=== PATIENT | male | born 1955 | race Caucasian/White ===

== ENCOUNTER 2022-05-25 01:16 | Day surgery (SDC) | payer MEDICARE, BC, SELFPAY ==
[2022-05-09 13:24] VITALS: BMI 25.8
[2022-05-25 06:56] VITALS: BP 139/84; PULSE 77; RESP 18; TEMP 36.3; O2SAT 98
[2022-05-25] MEDS: LACTATED RINGERS 1,000 ML 150 ML IV CONT (07:06)
--- NOTE | 2022-05-25 07:53 | PM.HPGS ---
History of Present Illness History of Present Illness Consent: Risks, benefits, and alternatives have been discussed and questions answered. Patient agrees to proceed with procedure. Chief complaint: hx of colon polyps Narrative: Juan Caro is a 67 year old male Presents for screening colonoscopy. Patient has a history of colon polyps. Most recent colonoscopy 2016. Patient's current weight appetite bowel movements are normal. He denies abdominal pain. He has had no bleeding. Current weight appetite is normal. He Review of Systems Review of Systems: review of systems noncontributory. [facility] Past Medical History Medical History (Updated 05/25/22 @ 07:54 by Shai Delvalle MD) Eczema Erectile dysfunction Essential (primary) hypertension FH: CAD (coronary artery disease) Other hyperlipidemia Pre-diabetes Radiculopathy of lumbosacral region Family History Family History Other Family history of coronary artery disease Hypertension Social History Social History (Updated 03/01/22 @ 09:56 by Mariam Chung [facility]) Smoking packs per day: 1.5 Smoking cigarettes per day: 30.0 Years smoked: 30 Smoking pack-years: 45.00 Smoking status: Former smoker Tobacco type: cigarettes Second hand tobacco smoke exposure: No Smoking end date: 08/19/09 Alcohol intake: current Drinks per week: 35 Substance use: never Substance use type: does not use Living arrangements: with family Gender identity (if verbalized by the patient): Male Sexual Orientation (if Verbalized by the Patient): Straight or Heterosexual Spiritual care concerns: No Agree to blood products: Yes Meds Home Medications and Allergies Home Medications Medication Instructions Recorded Confirmed Type diltiazem HCl 360 mg 360 mg PO DAILY #90 caps 08/23/21 05/25/22 Rx capsule,extended release 24 hr lisinopril 10 mg tablet 10 mg PO DAILY #90 tabs 08/23/21 05/25/22 Rx tadalafil 5 mg tablet 5 mg PO DAILY #28 tabs 08/23/21 05/25/22 Rx peg 3350-electrolytes 236 240 ml PO Q10M #4,000 mL 03/07/22 05/25/22 Rx gram-22.74 gram-6.74 gram-5.86 gram solution (Golytely) Allergies Allergy/AdvReac Type Severity Reaction Status Date / Time No Known Allergies Allergy Mild Verified 05/25/22 06:54 Vital Signs Vital Signs - 24 hr 05/25/22 06:56 Temperature 97.4 F L Pulse Rate 77 Respiratory Rate 18 Blood Pressure 139/84 Pulse Oximetry 98 Oxygen Delivery Room Air Exam Narrative: Physical exam reveals patient be alert. Vital signs stable. HEENT exam is unremarkable. Patient is anicteric. Lungs are clear to auscultation and percussion. Heart is without murmur or extra sounds. Abdomen bowel sounds are present soft nontender with no organomegaly. Digital external rectal exam is normal. Assessment and Plan Assessment and plan (1) History of colon polyps: Code(s): Z86.010 - Personal history of colonic polyps Status: Acute Assessment and Plan: Patient with a history of adenomatous colon polyps. He has also had intermittent hyperplastic polyp. Plan for surveillance colonoscopy now consider this a 5-7 year intervals in the future.
--- NOTE | 2022-05-25 07:53 | P.PNAN_ITS ---
Anes - Initial Pre Proc Eval Procedure: Operation Date: 05/25/22 08:00 Proposed Procedures p Screening Colonoscopy - Shai Delvalle MD Date/Time: 05/25/22 07:53 Surgeon: Shai Delvalle MD Pre Op Diagnosis: hx of colon polyps Patient Data Age: 67 Gender: M Height: 1.8 m Weight: 84 kg Last Vital Signs Temp 97.4 F L 05/25/22 06:56 Pulse 77 05/25/22 06:56 Resp 18 05/25/22 06:56 BP 139/84 05/25/22 06:56 Pulse Ox 98 05/25/22 06:56 O2 Del Method Room Air 05/25/22 06:56 Allergies Allergy/AdvReac Type Severity Reaction Status Date / Time No Known Allergies Allergy Mild Verified 05/25/22 06:54 Home Medications Medication Instructions Recorded Confirmed Type diltiazem HCl 360 mg 360 mg PO DAILY #90 caps 08/23/21 05/25/22 Rx capsule,extended release 24 hr lisinopril 10 mg tablet 10 mg PO DAILY #90 tabs 08/23/21 05/25/22 Rx tadalafil 5 mg tablet 5 mg PO DAILY #28 tabs 08/23/21 05/25/22 Rx peg 3350-electrolytes 236 240 ml PO Q10M #4,000 mL 03/07/22 05/25/22 Rx gram-22.74 gram-6.74 gram-5.86 gram solution (Golytely) Patient hx anesthesia problems: none Family hx anesthesia problems: none Results Review: All pre-operative results and documents have been reviewed as part of the pre- operative evaluation. [facility] Past Medical History Medical History Eczema Erectile dysfunction Essential (primary) hypertension FH: CAD (coronary artery disease) Other hyperlipidemia Pre-diabetes Radiculopathy of lumbosacral region Family History Family History Other Family history of coronary artery disease Hypertension Social History Social History (Updated 03/01/22 @ 09:56 by Mariam Chung CMA) Smoking packs per day: 1.5 Smoking cigarettes per day: 30.0 Years smoked: 30 Smoking pack-years: 45.00 Smoking status: Former smoker Tobacco type: cigarettes Second hand tobacco smoke exposure: No Smoking end date: 08/19/09 Alcohol intake: current Drinks per week: 35 Substance use: never Substance use type: does not use Living arrangements: with family Gender identity (if verbalized by the patient): Male Sexual Orientation (if Verbalized by the Patient): Straight or Heterosexual Spiritual care concerns: No Agree to blood products: Yes Anes - Eval Final PreProcedure Day of Procedure 05/25/22 07:53 Patient weight: normal Heart: regular rate and rhythm Lungs: clear to auscultation Airway: Mallampati scale class II Neurological: alert and oriented Last oral intake: >/= 8 hours ASA classification: II Emergent: no Anesthetic plan: proceed Anesthesia type and monitoring: general GIVS and standard monitoring Results Review: All pre-operative results and documents have been reviewed as part of the pre- operative evaluation. Informed Consent: The patient's anesthetic plan and its attendant risks and benefits were discussed with the patient/family/POA. Questions were solicited and answers provided to the satisfaction of the patient/family/POA.
[2022-05-25] MEDS: SIMETHICONE ORAL SUSPENSION 20 MG/0.3 ML 30 ML BOTTLE 0.6 ML IRRIGATION (08:15)
[2022-05-25 08:27] VITALS: BP 114/73; PULSE 63; RESP 12; O2SAT 99
[2022-05-25 08:37] VITALS: BP 113/73; PULSE 67; RESP 21; O2SAT 99
[2022-05-25 08:47] VITALS: BP 133/71; PULSE 68; RESP 22; O2SAT 100
== END 2022-05-25 08:52 | disposition home or self-care (01) ==
PROVIDERS: PCP Family Medicine; Visit Provider Internal Medicine Gastroenterology
PROC: 0DJD8ZZ Inspection of Lower Intestinal Tract, Via Natural or Artificial Opening Endoscopic (ICD-10-PCS; CPT 45378; principal; 2022-05-25 08:00)
DX: Z12.11 Encounter for screening for malignant neoplasm of colon (principal); D12.8 Benign neoplasm of rectum; D12.0 Benign neoplasm of cecum; K64.8 Other hemorrhoids; I10 Essential (primary) hypertension; I25.10 Atherosclerotic heart disease of native coronary artery without angina pectoris; R73.03 Prediabetes; E78.2 Mixed hyperlipidemia; L30.9 Dermatitis, unspecified; Z87.891 Personal history of nicotine dependence
CPT/HCPCS: 45385; 88305; J2704; J7120

== ENCOUNTER 2024-01-17 12:30 | Emergency (ER) | payer MEDICARE, BC, SELFPAY ==
--- NOTE | ~2024-01-17 | XR_ITS ---
XR finger 1st LT min 2V 01/17/2024 12:57 Indication: Laceration to the first finger Procedure: 4 views left first finger Comparison: No prior studies for comparison. Findings: There is a comminuted tuft fracture left first distal phalanx with overlying soft tissue ir regularity. No foreign body. Impression: 1: Comminuted displaced tuft fracture left first distal phalanx. Reviewed, dictated and finalized at location B. Impression: 1: Comminuted displaced tuft fracture left first distal phalanx.
[2024-01-17 12:37] VITALS: BP 136/75; PULSE 84; RESP 20; TEMP 36.3; O2SAT 98
--- NOTE | 2024-01-17 12:49 | ED.WOUNDLAC ---
HPI - Wound/Laceration General Chief Complaint: Wound/Laceration Stated Complaint: laceration left thumb Time Seen by Provider: 01/17/24 12:40 Focused HPI: This is a 68-year-old male that presents to the emergency department for laceration to his left thumb sustained just prior to arrival. Reports he tripped and dropped the toilet he was working on. He thinks it broke and he cut his finger on some of the ceramic. He is not up-to-date on tetanus. Reports injury to the nail. Denies decreased range of motion or numbness. Patient is right-hand dominant GENERAL: Well-appearing, well-nourished, and in no acute distress. HEAD: Normocephalic, atraumatic. CHEST: Clear to auscultation. ?No respiratory distress. HEART: Regular rate and rhythm.? NEURO: ?Alert and oriented x3. Patient screened in triage and initial orders placed.? ?Additional care and disposition to be based upon?diagnostic testing and treatment. Related Data Allergies Allergy/AdvReac Type Severity Reaction Status Date / Time No Known Allergies Allergy Mild Verified 01/17/24 12:42 Review of Systems Review of Systems: CONSTITUTIONAL: Denies fever SKIN: Reports laceration All systems reviewed & are unremarkable except as noted in HPI and below PMFSH Past Medical History Medical History (Updated 01/17/24 @ 16:09 by Radha Valdez PA-C) Eczema Erectile dysfunction Essential (primary) hypertension FH: CAD (coronary artery disease) Other hyperlipidemia Pre-diabetes Radiculopathy of lumbosacral region Family History Family History Other Family history of coronary artery disease Hypertension Social History Social History Smoking packs per day: 1.5 Smoking cigarettes per day: 30.0 Years smoked: 30 Smoking pack-years: 45.00 Smoking status: Former smoker Tobacco type: cigarettes Second hand tobacco smoke exposure: No Smoking end date: 08/19/09 Alcohol intake: current Drinks per week: 14 Substance use: never Substance use type: does not use Lack of Transportation: No Lack of Food: Never True Current Housing: I Have Housing Concerned About Future Housing: No Difficulty Paying Gas/Electric Bills: No Difficulty Paying for Meds: No Currently Unemployed: No Education: Associate Degree Difficulty w/ Childcare or Family Care: No Living arrangements: with family Gender identity (if verbalized by the patient): Male Sexual Orientation (if Verbalized by the Patient): Straight or Heterosexual Spiritual care concerns: No Agree to blood products: Yes Exam Narrative: GENERAL: Well-appearing, well-nourished, and in no acute distress. HEAD: Normocephalic, atraumatic. EYES: EOMI. EXTREMITIES: Normal range of motion. No edema. Left first finger with 2cm linear laceration into subcutaneous tissue to the distal phalanx involving the nail SKIN: Warm, dry, no rash. NEURO: No focal deficits. Alert and oriented x3. PSYCH: Normal mood and affect Course Course Emergency Course: Patient updated on his workup and agrees with plan of care Consultations Consultation #1: Spoke with Dr. Watson for guidance on laceration closure Date: 01/17/24 Vital Signs Vital signs: Vital Signs Temperature 97.4 F L 01/17/24 12:37 Pulse Rate 84 01/17/24 12:37 Respiratory Rate 20 01/17/24 12:37 Blood Pressure 136/75 01/17/24 12:37 Pulse Oximetry 98 01/17/24 12:37 Oxygen Delivery Room Air 01/17/24 12:37 Temperature 97.4 F L 01/17/24 12:37 Pulse Rate 84 01/17/24 12:37 Respiratory Rate 20 01/17/24 12:37 Blood Pressure 136/75 01/17/24 12:37 Pulse Oximetry 98 01/17/24 12:37 Oxygen Delivery Room Air 01/17/24 12:37 Procedures Laceration Laceration 1: Date: 01/17/24 Time: 16:11 Site: hand Side (If applicable): left Size (cm): 2
[2024-01-17] MEDS: HYDROcodone/acetaminophen (*CRX) 5-325 MG TABLET 1 TAB PO (14:04)
[2024-01-17] MEDS: TETANUS,DIPHTHERIA,AC PERTUSSIS ADULT (0.5 ML) BOOSTRIX IM (14:05)
[2024-01-17] MEDS: ceFAZolin SODIUM 1 GM VIAL IM (16:20)
== END 2024-01-17 16:21 | disposition home or self-care (01) ==
PROVIDERS: Emergency Provider Physician Assistant; PCP Family Medicine
DX: S62.522B Displaced fracture of distal phalanx of left thumb, initial encounter for open fracture (principal); W26.8XXA Contact with other sharp object(s), not elsewhere classified, initial encounter; Z87.891 Personal history of nicotine dependence; Z23 Encounter for immunization
CPT/HCPCS: 29130; 73140; 90471; 90715; 96372; 99284; A9270; J0690

== ENCOUNTER 2024-02-03 08:26 | Outpatient (CLI) | payer MEDICARE, BC, SELFPAY ==
--- NOTE | ~2024-02-03 | XR_ITS ---
XR finger 1st LT min 2V Ordering provider: Zhanna Parish PA-C History: . RECHECK ON FX . Comparison: Made 2023 FINDINGS: BONES: Comminuted acute fracture of the distal phalanx of the thumb. No significant displacement of t he bones. No other fractures seen. No significant change from previous examination. JOINT SPACES: Normal. SOFT TISSUES: Soft tissue swelling seen in the distal phalanx area. IMPRESSION: Comminuted fracture of the distal phalanx of the thumb with no significant displacement of the fragme nts. No significant change from previous examination. Reviewed, dictated and finalized at location A. IMPRESSION: Comminuted fracture of the distal phalanx of the thumb with no significant disp lacement of the fragments. No significant change from previous examination.
== END 2024-02-03 08:27 | disposition home or self-care (01) ==
PROVIDERS: PCP Family Medicine; Visit Provider Physician Assistant Surgical
DX: S62.525A Nondisplaced fracture of distal phalanx of left thumb, initial encounter for closed fracture (principal); X58.XXXA Exposure to other specified factors, initial encounter
CPT/HCPCS: 73140

== ENCOUNTER 2024-02-17 09:11 | Outpatient (CLI) | payer MEDICARE, BC, SELFPAY ==
--- NOTE | ~2024-02-17 | XR_ITS ---
XR finger 1st LT min 2V Ordering provider: Zhanna Parish PA-C History: . S62.609B - 3WK FOLLOW UP- FRACTURE, SMASH INJ DISTAL 1ST . Comparison: February 03, 2024 FINDINGS: BONES: Comminuted fracture in distal end of the distal phalanx of the left thumb. JOINT SPACES: Normal. SOFT TISSUES: Normal. IMPRESSION: Comminuted fracture in distal end of the distal phalanx of the left thumb. No change from previous examination. Reviewed, dictated and finalized at location A.
== END 2024-02-17 09:12 | disposition home or self-care (01) ==
PROVIDERS: PCP Family Medicine; Visit Provider Physician Assistant Surgical
DX: S62.609D Fracture of unspecified phalanx of unspecified finger, subsequent encounter for fracture with routine healing (principal); X58.XXXD Exposure to other specified factors, subsequent encounter
CPT/HCPCS: 73140